=== PATIENT | male | born 1970 | race African-American/Black ===

== ENCOUNTER 2017-08-10 04:13 | Emergency (ER) | payer OTHER ==
[2017-08-10] MEDS ORDERED: PERCOCET 5/325 PO ONE ×2 (06:51→11:14)
[2017-08-10] MEDS ORDERED: TORADOL IM ONE (06:51)
--- NOTE | 2017-08-10 07:21 | Emergency Department Report ---
ED Extremity Problem HPI - General Chief complaint: Extremity Injury, Lower Stated complaint: LEFT LEG PAIN Time Seen by Provider: 08/10/17 06:11 Source: family Mode of arrival: Wheelchair Limitations: No Limitations - History of Present Illness Initial comments: 47 yo male with no past medical history presents to [place] complaining of left inguinal pain x 6 days. Patient was seen and evaluated by his primary care doctor and diagnosed with abductor tendinitis and he fell to a specialist for myofascial release, EMR, and ultrasound. Patient is currently taking ibuprofen and Pepcid. He has run out of Flexeril and prednisone that were he was described on the sixth. He complains 6/10 pain it is constant, worse palpation or movement. No relieving factors reported. He denies fever, recent travel, dysuria, or vomiting. Vomiting, or recent fall/injury. However, patient's primary doctor states that patient had a specific movement that caused his acute left hip pain. Severity scale (0 -10): 10 - Related Data Previous Rx's Medication Instructions Recorded Last Taken Type Cyclobenzaprine [Flexeril] 10 mg PO TID PRN #30 tablet 08/10/17 Unknown Rx Oxycodone HCl/Acetaminophen 1 each PO Q6HR PRN #20 tablet 08/10/17 Unknown Rx [Percocet 7.5/325 mg] Allergies Allergy/AdvReac Type Severity Reaction Status Date / Time No Known Allergies Allergy Unverified 12/28/14 10:19 ED Review of Systems ROS: Stated complaint: LEFT LEG PAIN Other details as noted in HPI Comment: All other systems reviewed and negative Other: Constitutional: No fevers chills Eyes: No eye pain visual changes ENT: No ear pain or throat pain Neck: Denies pain Respiratory: Denies cough wheezing shortness of breath Cardiovascular: Denies chest pain, palpitations, syncope GI: Denies abdominal pain, nausea, vomiting, diarrhea : Denies dysuria Musculoskeletal: as per hpi Skin: Denies rash, lesions, erythema Neurologic: Denies headache, numbness, weakness Psychiatric: Denies suicidal ideation, hallucinations ED Past Medical Hx - Past Medical History Previous Medical History?: No - Surgical History Past Surgical History?: No - Social History Smoking Status: Never Smoker Substance Use Type: None - Medications Home Medications: Home Medications Medication Instructions Recorded Confirmed Last Taken Type Cyclobenzaprine [Flexeril] 10 mg PO TID PRN #30 tablet 08/10/17 Unknown Rx Oxycodone HCl/Acetaminophen 1 each PO Q6HR PRN #20 tablet 08/10/17 Unknown Rx [Percocet 7.5/325 mg] ED Physical Exam - General Limitations: No Limitations - Other Other exam information: General: No limitations, patient is alert in no acute distress Head exam: Atraumatic, normocephalic Eyes exam: Normal appearance, pupils equal reactive to light, extraocular movements intact ENT: Moist mucous membrane, normal oropharynx Neck exam: Normal inspection, full range of motion, no meningismus nontender Respiratory exam: Clear to auscultation bilateral, no wheezes, rales, crackles Cardiovascular: Normal rate and rhythm, normal heart sounds Abdomen: Soft, nondistended, and nontender, with normal bowel sounds, no rebound, or guarding Extremity: Full range of motion normal inspection no deformity. Left inguinal tenderness increase with passive movement of left hip. tenderness, edema, or leg asymmetry. 2+ DP pulse Back: Normal Inspection, full range of motion, no tenderness Neurologic: Alert, oriented x3, cranial nerves intact, no motor or sensory deficit Psychiatric: normal affect, normal mood Skin: Warm, dry, intact ED Course Vital Signs 08/10/17 08/10/17 08/10/17 04:23 06:13 06:17 Temperature 99.0 F 98.9 F Pulse Rate 99 H 96 H Respiratory 17 20 20 Rate Blood Pressure 150/93 Blood Pressure 143/86 [Right] O2 Sat by Pulse 99 100 100 Oximetry 08/10/17 08/10/17 08/10/17 07:10 07:11 10:47 Temperature Pulse Rate 100 H Respiratory 20 20 18 Rate Blood Pressure Blood Pressure 133/89 [Right] O2 Sat by Pulse 100 Oximetry 08/10/17 08/10/17 11:32 12:28 Temperature 99.2 F Pulse Rate 100 H Respiratory 16 16 Rate Blood Pressure Blood Pressure 142/91 [Right] O2 Sat by Pulse 100 Oximetry - Reevaluation(s) Reevaluation #1: 08/10/17 11:12 Patient received IM Toradol and by mouth Percocet. Positive improvement in pain. Patient is unable to actively flex the hip secondary to pain. Difficulty putting weight bearing weight secondary to pain Reevaluation #2: 08/10/17 11:41 Patient will be given 1 L of normal saline for mild tachycardia and hyponatremia. - Consultations Consultation #1: 08/10/17 11:[address] Horton orthopedic surgeon. Suggest findings may be secondary to inflammation. Recommend crutches, partial weightbearing, and pain medication Consultation #2: 08/10/17 11:40 I discussed case with patient's primary doctor Dr. Deepika Martínez. I informed him of our findings on CT, labs, a urine. Ann and then a copy of his results will be provided for outpatient follow-up. He will follow-up with patient to ensure that patient follows up to continue his treatment ED Medical Decision Making - Lab Data Result diagrams: 08/10/17 09:46 08/10/17 09:46 Lab Results 08/10/17 08/10/17 08/10/17 Range/Units 07:35 09:46 09:46 WBC 15.5 H (4.5-11.0) K/mm3 RBC 4.43 (3.65-5.03) M/mm3 Hgb 12.9 (11.8-15.2) gm/dl Hct 38.9 (35.5-45.6) % MCV 88 (84-94) fl MCH 29 (28-32) pg MCHC 33 (32-34) % RDW 13.8 (13.2-15.2) % Plt Count 364 (140-440) K/mm3 Sodium 132 L (137-145) mmol/L Potassium 3.9 (3.6-5.0) mmol/L Chloride 92.2 L (98-107) mmol/L Carbon Dioxide 24 (22-30) mmol/L Anion Gap 20 mmol/L BUN 18 (9-20) mg/dL Creatinine 0.7 L (0.8-1.5) mg/dL Estimated GFR > 60 ml/min BUN/Creatinine Ratio 25.71 % Glucose 144 H (75-100) mg/dL Calcium 8.6 (8.4-10.2) mg/dL Urine Color Yellow (Yellow) Urine Turbidity Slightly-cloudy (Clear) Urine pH 6.0 (5.0-7.0) Ur Specific [place] 1.024 (1.003-1.030) Urine Protein 100 mg/dl (Negative) mg/dL Urine Glucose (UA) Neg (Negative) mg/dL Urine Ketones Neg (Negative) mg/dL Urine Blood Lg (Negative) Urine Nitrite Neg (Negative) Urine Bilirubin Neg (Negative) Urine Urobilinogen < 2.0 (<2.0) mg/dL Ur Leukocyte Esterase Neg (Negative) Urine WBC (Auto) 2.0 (0.0-6.0) /HPF Urine RBC (Auto) > 182.0 (0.0-6.0) /HPF Urine Mucus Few /HPF - Radiology Data Radiology results: report reviewed Left hip x-ray: Unremarkable Left leg Doppler negative CT abdomen and pelvis noncontrast: Small nonobstructing bilateral nephrolithiasis. Moderate Left hip joint effusion and edema extending into the left gluteal muscle. Infectious versus inflammatory. Subtle similar right hip process/septic hip joint also cannot be excluded. - Medical Decision Making left hip findings likely inflamatory, septic joint less likely given lack of fever or severe pain. Outpt tx suggested by ortho. Patient will be informed to continue his current ibuprofen. Will discharge on Percocet and crutches. Orthopedic follow-up will be encouraged. Flexeril also be represcribed to treat possible associated muscle spasm. - Differential Diagnosis arthritis, fxt, tendinitis, renal colic, DVT Critical Care Time: No Critical care attestation.: If time is entered above; I have spent that time in minutes in the direct care of this critically ill patient, excluding procedure time. ED Disposition Clinical Impression: Effusion, left hip, Nephrolithiasis Disposition: - TO HOME OR SELFCARE Is pt being admited?: No Does the pt Need Aspirin: No Condition: Stable Instructions: Kidney Stones (ED), Hip Bursitis (ED) Additional Instructions: Take the medications as prescribed. You were provide a copy of your CAT scan. Please take this to the doctor follow-up. Please return if symptoms worsen. Prescriptions: Cyclobenzaprine [Flexeril] 10 mg PO TID PRN #30 tablet PRN Reason: Muscle Spasm Oxycodone HCl/Acetaminophen [Percocet 7.5/325 mg] 1 each PO Q6HR PRN #20 tablet PRN Reason: Pain Referrals: RYAN HORTON MD [Staff Physician] - 3-5 Days PRIMARY CARE, [Primary Care Provider] - 7-10 days Time of Disposition: 12:56
--- NOTE | 2017-08-10 07:33 | XRay Report ---
LEFT HIP, 2 views: History: Left hip pain, left inguinal pain. The bony architecture is intact without evidence of fracture or dislocation. No significant soft tissue abnormality is seen. IMPRESSION: Unremarkable left hip.
[2017-08-10 08:21] LABS: Bilirubin,Urine NEG (Negative); Blood,Urine LG (Negative); Ketones,Urine NEG (Negative); Leukocyte Esterase,Urine NEG (Negative); Mucus,Urine FEW /HPF; Nitrite,Urine NEG (Negative); Urobilinogen,Urine < 2.0 mg/dL (<2.0)
[2017-08-10 08:24] LABS: RBC,Urine > 182.0 /HPF (0.0-6.0)
[2017-08-10 10:01] LABS: Hematocrit 38.9 % (35.5-45.6); Hemoglobin 12.9 gm/dl (11.8-15.2); Mean Corpuscular HGB Conc 33 % (32-34); Mean Corpuscular Hemoglobin 29 pg (28-32); Mean Corpuscular Volume 88 fl (84-94); Platelet Count 364 K/mm3 (140-440); Red Blood Count 4.43 M/mm3 (3.65-5.03); Red Cell Distribution Width 13.8 % (13.2-15.2); White Blood Count 15.5 K/mm3 (4.5-11.0)
[2017-08-10 10:19] LABS: Anion Gap 20 mmol/L; BUN/Creatinine Ratio 25.71; Blood Urea Nitrogen 18 mg/dL (9-20); Calcium 8.6 mg/dL (8.4-10.2); Carbon Dioxide 24 mmol/L (22-30); Chloride 92.2 mmol/L (98-107); Glucose 144 mg/dL (75-100); Potassium 3.9 mmol/L (3.6-5.0); Sodium 132 mmol/L (137-145)
--- NOTE | 2017-08-10 11:01 | Cat Scan Report ---
CT ABDOMEN AND PELVIS WITHOUT CONTRAST INDICATION: Left groin pain, hematuria. COMPARISON: None similar. FINDINGS: Noncontrast abdomen and pelvis CT performed. LUNG BASES: Slight cardiomegaly/left ventricular prominence. Slight bibasilar atelectasis or scarring. Right hemidiaphragm slightly elevated. ABDOMEN: Please note that sensitivity to detect small visceral lesions is limited due to the absence of intravenous or oral contrast. However, grossly unremarkable unenhanced liver, spleen, gallbladder, pancreas, adrenals, non-aneurysmal abdominal aorta and the IVC. Right hepatic lobe approximately 20.5 cm in mid clavicular length. No ascites or size significant adenopathy. Few small, subcentimeter, scattered mesenteric and retroperitoneal lymph nodes noted. Nonopacified GI tract evaluation limited, though grossly nonobstructive. Normal appendix. Specifically, kidneys non-hydronephrotic bilaterally, though tiny nonobstructing calculi measure approximately 3 mm on the right, axial image 161, series 2 an approximately 1 mm left interpolar, axial image 171. PELVIS: Right anterolateral corner of non-opacified urinary bladder inferiorly partially herniates into the right inguinal canal as on axial image 373, series 2, amongst others. Otherwise grossly unremarkable seminal vesicles, prostate and rectosigmoid. No free fluid or significant adenopathy. Few spinal degenerative changes, greatest lower lumbar with mild spurring and vacuum phenomenon as also L3 inferior endplate irregularities/Schmorl's nodes and mild L3-4 disc narrowing. Moderate left hip joint effusion though noted with edema extending into the left gluteal muscles as on repeat/additional series 2, images 78-165. Subtle fluid/effusion at the right hip anteriorly also not entirely excluded on axial image 138. CONCLUSION: 1. No acute abdominal CT abnormality, though patient's left groin pain may be explained by left hip joint effusion and surrounding muscle edema, as described, of possibly infectious or inflammatory etiologies. Subtle similar right hip process/septic hip joints also not excluded. Please correlate. 2. Small nonobstructing bilateral nephrolithiasis. 3. Various other incidental findings, including mild cardiomegaly, normal appendix, prominent liver and partial herniation of right anterolateral urinary bladder aspect into the right inguinal canal, amongst others, as above. Thank you for the opportunity to participate in this patient's care.
[2017-08-10] MEDS ORDERED: NACL 0.9% 1000 ML 1,000 ML IV ONE (11:30)
[2017-08-10 11:42] LABS: Basophils % (Manual) 0 % (0.0-1.8); Blastocytes % (Manual) 0 %; Eosinophils % (Manual) 0 % (0.0-4.3)
[2017-08-10 11:43] LABS: Diff Status Complete; RBC Morphology Normal
[2017-08-10 12:30] VITALS: BP 142/91
--- NOTE | 2017-08-11 11:13 | Vascular Lab Report ---
Left Lower Extremity Venous Duplex Study: Reason for Exam: Swelling of the left lower extremity. Comments on the Right: A limited duplex study was done of the proximal veins of the right lower extremity. All veins visualized are freely compressible without evidence of internal echogenicity. Flow is spontaneous and phasic throughout. No evidence of acute or chronic thrombus is seen in any of the vessels visualized. Comments on the Left: All veins visualized are freely compressible without evidence of internal echogenicity. Flow is spontaneous and phasic throughout. No evidence of acute or chronic thrombus is seen in any of the vessels visualized. Impression: No evidence of acute or chronic deep venous thrombosis in the left lower extremity.
== END 2017-08-10 13:13 | disposition home or self-care (01) ==
LOC: ED 04:13
DX: M25.452 Effusion, left hip (principal); N20.0 Calculus of kidney
CPT/HCPCS: 36415; 73502; 74176; 80048; 81001; 85007; 85025; 93971; 96360; 96372; 99285; J1885; J7030